=== PATIENT | female | born 1965 | race Caucasian/White ===

== ENCOUNTER 2017-03-02 05:39 | Day surgery (SDC) | payer MEDICAID ==
[~2017-03-02] VITALS: Ht 148.6 cm; Wt 62.6 kg
[~2017-03-02 05:39] MED LIST: ASPI-1159 PO; ATOR-2 PO; HYDR25TA PO; INSLIS SQ; INSU3INS6 SQ; LATA2.5D2 BOTHEYE; LISI40TA4 PO; METF10002 PO; OMEP20TA2 PO
[2017-03-02] MEDS ORDERED: BUPIVACAINE HCL/PF 0.25% (2.5MG/ML) 10ML ONE ×2 (08:18→11:04)
[2017-03-02] MEDS ORDERED: GENTAMICIN SULF 40MG/ML 2ML VIAL ONE (08:18)
[2017-03-02] MEDS ORDERED: SODIUM CHLORIDE 0.9% 1,000 ML IV SCH (10:30)
[2017-03-02] MEDS ORDERED: BACITRACIN ZINC 15GM TUBE TOP ONE (11:03)
[2017-03-02] MEDS ORDERED: NORMAL SALINE 0.9% 10 ML SYR ONE (11:04)
[2017-03-02] MEDS ORDERED: BACITRACIN 50,000 UNITS/VIAL ONE (11:05)
[2017-03-02] MEDS ORDERED: INSLIS SUBCUT ×2 (11:45)
[2017-03-02] MEDS ORDERED: DEXAMETHASONE 4MG/ML 1ML VIAL ONE (11:47)
[2017-03-02] MEDS ORDERED: CEFAZOLIN SODIUM 1000MG/VIAL ONE ×2 (11:47→11:54)
[2017-03-02] MEDS ORDERED: ONDANSETRON HCL 4MG/2ML VIAL ONE (11:48)
[2017-03-02] MEDS ORDERED: SODIUM CHLORIDE 0.9% 10ML VIAL ONE (11:54)
[2017-03-02] MEDS ORDERED: LABETALOL HCL 5MG/ML VIAL 20ML IV ONE ×2 (12:04→12:07)
[2017-03-02] MEDS ORDERED: MEPERIDINE HCL/PF 25MG/ML CPJ IV PRN (12:15)
[2017-03-02] MEDS ORDERED: HYDROMORPHONE HCL/PF 2MG/ML CPJ IV PRN (12:15)
[2017-03-02] MEDS ORDERED: ONDANSETRON HCL 4MG/2ML VIAL IV PRN (12:15)
[2017-03-02] MEDS ORDERED: LABETALOL HCL 20MG/4ML CARPUJECT IV PRN (12:15)
== END 2017-03-02 14:30 ==
LOC: OR 05:39
PROVIDERS: ATTEND Orthopaedic Surgery
DX: M65.312 Trigger thumb, left thumb (principal); E11.9 Type 2 diabetes mellitus without complications; E78.00 Pure hypercholesterolemia, unspecified; I10 Essential (primary) hypertension; G89.29 Other chronic pain; Z79.82 Long term (current) use of aspirin; Z79.4 Long term (current) use of insulin; H40.89 Other specified glaucoma
CPT/HCPCS: 26055; 82962; A4216; J0690; J1100; J2405; J3490; J7030; J1580